=== PATIENT | male | born 1955 | race Caucasian/White ===

== ENCOUNTER 2021-04-07 16:41 | Emergency (ER) | payer MEDICARE, SELFPAY ==
--- NOTE | ~2021-04-07 | XR_ITS ---
EXAMINATION: XR chest 1V portable INDICATION: Cough TECHNIQUE: Portable AP chest at 1851 hours COMPARISON: None available FINDINGS: There are airspace opacities of the mid and lower lung zones. No pleural effusion or pneumo thorax is identified. The cardiomediastinal silhouette is normal. A calcified nodule of the right upp er lobe is consistent with old granulomatous disease. IMPRESSION: 1. Airspace opacities of the mid and lower lung zones, likely pneumonia. Reviewed, dictated and finalized at location [facility]. [employer] [employer]
[2021-04-07 16:43] VITALS: BP 118/73; PULSE 95; RESP 14; TEMP 36.6; O2SAT 97
--- NOTE | 2021-04-07 18:44 | ECG_ITS ---
Measurements Intervals [place] Rate: 85 P: 30 VT: 160 QRS: 2 QRSD: 111 T: 20 QT: 369 QTc: 441 Interpretive Statements SINUS RHYTHM DELAYED PRECORDIAL R/S TRANSITION BASELINE WANDER- III, AVF BORDERLINE ECG Electronically Signed On 04-07-2021 20:25:26 IMAGING SCIENCE PROFESSOR by Joseph Perry D.O.
--- NOTE | 2021-04-07 18:55 | ED.WEAKNESS ---
HPI - Weakness General Chief complaint: Weakness Stated complaint: Weakness and fatigue, high blood sugar Time Seen by Provider: 04/07/21 18:16 Source: RN notes reviewed History of Present Illness HPI Narrative: Patient presents emergency room from home for weakness. Patient states he has been weak over the past 1 week states that with this he has had a decreased appetite and is not eating very much over the past several days patient also states that he has been feeling easily short of breath with activity he denies any shortness of breath at rest but with activity he denies any fever chills chest pain abdominal pain nausea vomiting diarrhea or any other symptoms denies any cough Related Data Home Medications Medication Instructions Recorded Confirmed Adult Low Dose Aspirin 81 mg PO DAILY 04/07/21 04/07/21 Humira 1 mg SUBCUT DIRECTED 04/07/21 allopurinol 200 mg PO DAILY 04/07/21 amlodipine 10 mg PO DAILY 04/07/21 atorvastatin 20 mg PO DAILY 04/07/21 dabigatran etexilate [Pradaxa] 150 mg PO BID 04/07/21 empagliflozin [Jardiance] 10 mg PO DAILY 04/07/21 fenofibrate 160 mg PO DAILY 04/07/21 glimepiride 8 mg PO DAILY 04/07/21 metoprolol tartrate 25 mg PO BID 04/07/21 Allergies Allergy/AdvReac Type Severity Reaction Status Date / Time iohexol Allergy Unknown Verified 04/07/21 19:25 [From contrast - CT, X-RAY] Review of Systems Review of Systems: Gen.: Denies fevers or chills Eyes: Denies eye pain or visual change ENT: Denies congestion Respiratory: Reports shortness of breath with ambulation denies cough CV: Denies chest pain or palpitations GI: Denies abdominal pain nausea, emesis or diarrhea Musculoskeletal: Denies back pain or muscle pain Neuro: Reports weakness Skin: Denies rash Except as documented, all other systems reviewed and negative [facility] Past Medical History Medical History (Updated 04/07/21 @ 21:09 by Alonzo Bridges DO) Coronary artery disease Social History Social History (Updated 04/07/21 @ 18:56 by Alonzo Bridges DO) Smoking status: Never smoker Exam Narrative: APPEARANCE: No acute distress, nontoxic, resting in bed EYES: EOMI HEENT: Normocephalic, atraumatic, OMM RESPIRATORY: No respiratory distress crackles in bilateral lower lung barrientos no wheezing CARDIOVASCULAR: Regular rate and rhythm without murmurs rubs or gallops. ABDOMINAL: Soft, nontender, nondistended, no rebound or guarding MUSCULOSKELETAl: Moves all extremities. No clubbing, cyanosis 2+ edema in the bilateral lower extremities NEURO: Awake and alert. Following commands, speech normal, no focal deficits SKIN:: Warm, dry. No rashes lesions or abrasions PSYCHIATRIC: Normal affect/mood, Course Course Emergency Course: Discussed with patient's family patient does have history of renal insufficiency Patient with walking pulse ox in ED oxygen saturations staying in the mid 90s : Discussed with Dr. Wang for patient's PCP Dr. Farah updated on patient condition agrees plan for discharge request patient call the office tomorrow to be set up for monoclonal antibody infusion Discussed with patient results of workup and diagnosis. Discussed need for follow-up with primary care, proper use of medication, and reasons to return to the emergency department. Patient understands and agrees to current treatment plan Vital Signs Vital signs: Vital Signs Temperature 97.8 F 04/07/21 16:43 Pulse Rate 95 04/07/21 16:43 Respiratory Rate 14 04/07/21 16:43 Blood Pressure 118/73 04/07/21 16:43 Pulse Oximetry 97 04/07/21 16:43 Temperature 97.8 F 04/07/21 16:43 Pulse Rate 89 04/07/21 20:43 Respiratory Rate 20 04/07/21 20:43 Blood Pressure 127/88 04/07/21 20:43 Pulse Oximetry 92 04/07/21 20:43 MDM - Weakness MDM Narrative Medical decision making narrative: Patient presents emergency department for weakness been ongoing for the past week some intermittent shortness of breath. Patient i
[2021-04-07 18:56] LABS: Basophils Percent Auto 0.1 % (0.2-1.2); Eosinophils Percent Auto 0.1 % (0-4.4); Hematocrit 56.3 % (42.0-52.0); Hemoglobin 18.5 g/dL (14.0-18.0); Immature Granulocyte Absolute 0.03 K/mm3 (0.00-0.031); Immature Granulocyte Percent A 0.4 % (0-0.5); Immature Platelet Fraction Pct 14.5 % (0.9-11.2); Lymphocytes Absolute Auto 2.11 K/mm3 (0.9-3.2); Lymphocytes Percent Auto 28.4 % (18.3-44.2); Mean Corpuscular HGB Conc 32.9 g/dl (32-36); Mean Corpuscular Hemoglobin 30.6 pg (26-34); Mean Corpuscular Volume 93.2 fl (80-100); Mean Platelet Volume 12.6 fl (7.4-10.4); Monocytes Absolute Auto 0.8 K/mm3 (0.1-0.6); Monocytes Percent Auto 10.2 % (2.6-8.5); Neutrophils Absolute Auto 4.5 K/mm3 (1.3-6.7); Neutrophils Percent Auto 60.8 % (45.5-73.1); Platelet Count Result 105 k/mm3 (150-375); Red Blood Count 6.04 M/mm3 (4.6-6.20); Red Cell Distribution Width 13.1 % (11.5-14.5); White Blood Count 7.4 K/mm3 (4.5-10.0)
[2021-04-07 19:08] LABS: INR 1.1; Prothrombin Time 14.1 Seconds (11.1-14.7)
[2021-04-07 19:09] LABS: Partial Thromboplastin Time 38.4 SECONDS (22.3-36.8)
[2021-04-07 19:19] LABS: Alanine Aminotransferase 33 U/L (4-50); Albumin Level 4.5 g/dL (3.5-5.1); Alkaline Phosphatase 57 U/L (38-126); Anion Gap 15 mmol/L (8-16); Aspartate Amino Transferase 34 U/L (17-59); Bilirubin,Total 0.8 mg/dL (0.2-1.3); Blood Urea Nitrogen 32 mg/dL (9-20); Calcium 9.5 mg/dL (8.4-10.2); Carbon Dioxide 23 mmol/L (22-30); Chloride 97 mmol/L (98-107); Estimated CRCL calculation 60 ml/min; Estimated Glomerular Filt Rate 44; Glucose 293 mg/dL (65-110); NT Pro B Type Natriuretic Pept 74 pg/mL (5-100); Potassium 4.6 mmol/L (3.4-5.0); Sodium 135 mmol/L (137-145); Troponin I < 0.012 ng/mL (0.000-0.034)
[2021-04-07] MEDS: SODIUM CHLORIDE 0.9% IV 1,000 ML 999 ML IV CONT (19:33)
[2021-04-07 19:38] LABS: SARS-CoV-2 RNA PCR Positive
[2021-04-07 20:06] LABS: Add Urine Microscopic? YES; Appearance Urine Clear (Clear); Bilirubin Urine Negative (Negative); Blood Urine Negative (Negative); Color Urine Straw (Yellow); Glucose Urine UA 3+ mg/dL (Negative); Ketones Urine 1+ mg/dL (Negative); Leukocyte Esterase Ur Negative LEU/UL (Negative); Mucus Urine Rare /lpf; Nitrate Urine Negative (Negative); Protein Urine 1+ mg/dL (Negative); RBC Urine 0-2 /hpf (0-2); Specific Grav Ur 1.028 (1.001-1.035); Urobilinogen Urine Negative mg/dL (<2.0); WBC Urine 0-3 /hpf
[2021-04-07 20:43] VITALS: BP 127/88; PULSE 89; RESP 20; O2SAT 92
[2021-04-07 20:50] LABS: Glucose Point of Care 223 mg/dl (65-105)
--- NOTE | 2021-04-07 21:19 | PC.NURSE ---
patient walked in [place] with pulse ox. o2 sat remainded between 95 and 92 %
[2021-04-07] MEDS: ALBUTEROL SULFATE (*SP) INHALER 2 PUFF INHALATION (21:23)
== END 2021-04-07 21:39 | disposition home or self-care (01) ==
PROVIDERS: Emergency Provider Emergency Medicine
DX: U07.1 COVID-19 (principal); N28.9 Disorder of kidney and ureter, unspecified; I25.10 Atherosclerotic heart disease of native coronary artery without angina pectoris; E11.9 Type 2 diabetes mellitus without complications; Z79.02 Long term (current) use of antithrombotics/antiplatelets; Z79.84 Long term (current) use of oral hypoglycemic drugs; Z79.82 Long term (current) use of aspirin; R94.31 Abnormal electrocardiogram [ECG] [EKG]; R91.8 Other nonspecific abnormal finding of lung field; R06.02 Shortness of breath
CPT/HCPCS: 36415; 71045; 80053; 81001; 82948; 83880; 84484; 85025; 85055; 85610; 85730; 93005; 96360; 99284; A9270; C9803; J7030; U0003; U0005